=== PATIENT | male | born 1950 | race Two or more races ===

== ENCOUNTER 2024-10-22 07:32 | Inpatient (IN) | payer OTHER ==
[2024-10-22] VITALS (7 sets, daily range): BP systolic 120–127; BP diastolic 56–71; PULSE 68–87; RESP 10–20; TEMP 97.3–98; O2SAT 94–98
[~2024-10-22] VITALS: Ht 188 cm; Wt 113.4 kg
[~2024-10-22 07:32] MED LIST: ASPI1TAB20 PO; ATOR20TA PO; EMPA1TAB3 PO; INSU70IN3 SC; LEVO100T69 PO; LOSA-533 PO; MET50T PO; SEMA2INJ3 SC
[2024-10-22] MEDS ORDERED: MIDAZOLAM HCL 2MG/2ML 2ml VIAL (1mg/ml) ONE (08:50)
[2024-10-22] MEDS ORDERED: MORPHINE SULF PF 5 MG/10 ML VIAL ONE (08:50)
[2024-10-22] MEDS ORDERED: fentaNYL CITRATE 100 MCG/2 ML VL ONE (08:50)
[2024-10-22] MEDS ORDERED: KETAMINE 50mg/ML 1ml syringe ONE ×2 (08:50→10:57)
[2024-10-22] MEDS ORDERED: ONDANSETRON HCL 4 MG/2 ML VIAL ONE (08:51)
[2024-10-22] MEDS ORDERED: GLYCOPYRROLATE 0.2 MG/ML 1ML VIAL ONE (08:51)
[2024-10-22] MEDS ORDERED: ePHEDrine SULFATE 50 MG/ML AMP ONE (08:51)
[2024-10-22] MEDS ORDERED: PROPOFOL 10 MG/ML 20 ML IV ONE ×2 (08:51→10:39)
[2024-10-22] MEDS ORDERED: PHENYLEPHRINE HCL 10 MG/ML VL ONE (08:51)
[2024-10-22] MEDS ORDERED: KETOROLAC TROMETH 30 MG/ML 1ML VIAL ONE (08:51)
[2024-10-22] MEDS: ROPIVACAINE 0.5% (5MG/ML) 20ML AMPULE IJ ONE (10:25)
[2024-10-22] MEDS ORDERED: oxyCODONE HCL 5MG TAB PO PRN ×2 (11:45)
[2024-10-22] MEDS ORDERED: ACETAMINOPHEN 325 MG TAB PO PRN (11:45)
--- NOTE | 2024-10-22 11:45 | DVHOP2 ---
Operative Report - 2 Report Details Date: 10/22/24 Preop Diagnosis: Left knee degenerative arthritis Postop Diagnosis: Left knee degenerative arthritis Surgeon: Omi Farr MD Supervisor [employer]: Lázaro CRUMP Anesthesiologist: Swapnil Anesthesia: Local, Regional Drains: Prevena closed wound suction Implant: DonJoy size 10 femur PS, size nine tibial base plate, size 10 polyethylene Consent: The patient was informed of the risks and benefits of the procedure. These include but are not limited to complications of anesthesia, postoperative infection, incomplete relief of symptoms, recurrence of symptoms, damage to blood vessels, nerves and tendons, deep venous thrombosis, pulmonary embolism and possible need for repeat surgery in the future. Complications: None Estimated Blood Loss: 50 cc Fluids: See anesthesia record Findings: Denuded cartilage with eburnated bone, osteophytes, absent ACL Indications for Surgery: Left knee posttraumatic degenerative arthritis with severe pain and functional impairment despite nonoperative management Name of Procedure Performed Left total knee arthroplasty Procedure Details Procedure Details: The patient was brought to the operating room and placed on the table in the supine position after being given spinal anesthetic with adequate analgesia obtained. Surgical timeout was performed verifying patient, laterality and procedure Preop patient received IV cefepime IV Ancef and IV tranexamic acid. Tourniquet was applied to the lower extremity. Extremity was elevated, exsanguinated Esmarch, and tourniquet inflated. Lower extremity was prepped and draped in sterile fashion. Midline incision was made followed by medial arthrotomy. I exposed the anterior medial and lateral tibial plateau and the anterior distal femur. Bovie and aqua mantis were used for hemostasis. I excised the anterior meniscal tissue with Bovie. I excised a portion of the fat pad with Bovie. The patella was everted and the knee flexed. I drilled the distal femur and suctioned the hole to reduce the risk of fat emboli. I inserted intramedullary guide with 5 degree valgus setting. I pinned the distal femoral cutting block anteriorly. Intramedullary ruba was removed. Distal femoral cut was made and the block removed. I brought my attention to the tibia setting up the external cutting jig for the tibia paying attention to slope, rotation and varus valgus alignment. I set the depth and pinned the block. I used the external alignment ruba to aid in checking alignment. Bone cut was made and bone removed releasing soft tissue attachments with Bovie. Cutting block removed. I then checked the extension gap and deemed adequate and removed the femur and tibia pins. I flexed the knee and applied the femoral sizing guide to the femur. I checked the size and external rotation setting at 90 degrees to Whitesides line and checking the epicondylar axis. I drilled the holes then removed the sizing guide and pin. I then tapped on the 4 in 1 cutting block and checked with the vicki wing anteriorly to make sure that I would not notch then pinned the block. Cuts were made and the block and pins were removed. Bone was removed with curved osteotome. I used a rongeur to remove any remaining osteophytes at the femur and tibia. I then used a lamina recenterer to open up the back alternating between the medial and lateral side. Any remaining meniscal tissue was excised with scalpel. I used curved osteotome, curette and rongeur to remove any posterior osteophytes. I prophylactically coagulated with aqua mantis. I then tapped on the template for the box cut and pinned it. Box cut was made and bone removed. Template and pin removed. I then tapped on the femoral trial. I then brought my attention back to the tibia sizing it. I used the external alignment ruba to make sure that rotation and alignment were good. I made a Bovie anthony at the tibial tray anthony identifying rotation for later use. I tried various tibial polytrials. The patella tracked nicely without thumb pressure. I removed the trials. I pinned the tray and used the reamer and keel punch. The implants were brought into the field while bone pre paration was started. I used both normal saline irrigation and the CarboJet to prepare the bone. Once cement was ready I applied cement to the tibial implant and tibial bone tapped it on and removed excess cement in usual fashion. In similar fashion I tapped on the femoral implant. I inserted the trial polyethylene and brought the knee into 30 degrees flexion. I irrigated with xperience irrigant. Once cement cured, I checked stability and range of motion as well as patella tracking. tourniquet was released and hemostasis maintained with aqua mantis. I inserted the polyethylene and again checked stability. I used a 2 grams of vancomycin half of which was placed deep and half superficial. I repaired the extensor mechanism with the knee in flexion with #1 Ethibond interrupted [id number]. Deep subcutaneous tissue was closed with 0 Vicryl. Superficial subcutaneous tissue was closed with 2-0 vicryl interrupted. Skin was closed with courtney. I then applied the Prevena closed wound suction dr kaufman. Patient tolerated the procedure well and was brought to recovery room in stable condition. Condition Stable Disposition Still a Patient OMI FARR MD Oct 22, 2024 11:45
[2024-10-22] MEDS: ACCU-CHEK COMFORT CURVE STRIP VI ONE (11:48)
[2024-10-22] MEDS ORDERED: DexAMETHasone SOD PHOS 10MG/1ML VIAL INJ IV PRN (12:00)
[2024-10-22] MEDS ORDERED: ONDANSETRON HCL 4 MG/2 ML VIAL IV PRN (12:00)
[2024-10-22] MEDS: ACETAMINOPHEN 325 MG TAB PO SCH (12:00)
[2024-10-22] MEDS ORDERED: NALOXONE HCL 0.4 MG/ML VIAL IV PRN (12:00)
[2024-10-22] MEDS: KETOROLAC TROMETH 30 MG/ML 1ML VIAL IV SCH (12:00)
[2024-10-22] MEDS ORDERED: diphenhdrAMINE HCL 50 MG/1 ML VL IV PRN (12:00)
[2024-10-22] MEDS ORDERED: DEXTROSE (50%) 50ML SYRG IV PRN (12:00)
[2024-10-22] MEDS ORDERED: KETOROLAC TROMETH 30 MG/ML 1ML VIAL IV PRN (12:00)
[2024-10-22] MEDS: EPINEPHrine HCL 1 MG/1 ML AMP ONE (12:20)
[2024-10-22] MEDS: TRANEXAMIC ACID 20 ML ONE (12:21)
[2024-10-22] MEDS: CEFEPIME 1GM/ 50ML 50 ML IV ONE (12:21)
[2024-10-22] MEDS: VANCOMYCIN HCL 1000 MG VL ONE (12:21)
[2024-10-22] MEDS: ceFAZolin 2 GM/D5W100ml 100 ML IV ONE (12:22)
--- NOTE | 2024-10-22 12:24 | DVH ---
EXAM: XY L KNEE 3V XRAY HISTORY: Postop COMPARISON: None TECHNIQUE: 3 views of the left knee were performed. FINDINGS: Status post total knee replacement. The components are well aligned and well seated. No fracture. So ft tissue swelling and subcutaneous emphysema likely related to recent surgery. Wound VAC Partially imaged. IMPRESSION: 1. Postoperative changes status post total knee replacement without evidence of acute abnormality.
[2024-10-22] MEDS ORDERED: AMLO1TAB22 PO (12:34)
[2024-10-22] MEDS ORDERED: ceFAZolin 2 GM/D5W50ml 50 ML IV SCH (14:00)
[2024-10-22] MEDS: D5W/LACTATED RINGERS 1,000 ML IV SCH (15:09)
[2024-10-22] MEDS: ACCU-CHEK COMFORT CURVE STRIP VI SCH (16:45)
[2024-10-22] MEDS: InsuLIN REG 1unit/0.01ml Soln (100units/ml) SC SCH ×2 (16:46→21:40)
[2024-10-22] MEDS: ceFAZolin 2 GM/D5W50ml 50 ML IV SCH (17:49)
[2024-10-22] MEDS: PREGABALIN 25 MG CAP PO SCH (21:34)
[2024-10-23] VITALS (11 sets, daily range): BP systolic 101–142; BP diastolic 54–87; PULSE 60–80; RESP 16–20; TEMP 36.6; O2SAT 95–100
[2024-10-23] MEDS: LEVOTHYROXINE SODIUM 100 MCG TAB PO SCH (06:12)
[2024-10-23 07:30] LABS: Basophils # (auto) 0 10 ^3/uL (0-0.2); Basophils % (auto) 0.2 % (0.0-2.0); Eosinophils # (auto) 0 10 ^3/uL (0-0.8); Hematocrit 39.5 % (41.0-53.0); Hemoglobin 12.9 g/dL (13.5-17.5); Lymphocytes # (auto) 1.3 10 ^3/uL (0.4-5.4); Lymphocytes % (auto) 10.7 % (10.0-50.0); Mean Corpuscular Hemoglobin 28.1 pg (28.0-32.0); Mean Corpuscular Hgb Conc. 32.7 g/dL (32.0-36.0); Mean Corpuscular Volume 85.9 fL (80.0-100.0); Monocytes # (auto) 1.5 10 ^3/uL (0-1.3); Monocytes % (auto) 11.8 % (0.0-12.0); Neutrophils # (auto) 9.5 10 ^3/uL (1.6-8.6); Neutrophils % (auto) 77.3 % (37.0-80.0); Nucleated Red Blood Cells % 0.1 %; Platelet Count (auto) 159 10^3/uL (140-450); Red Blood Cells 4.59 10^6/uL (4.5-5.90); Red Cell Distribution Width 14.7 % (11.8-14.3); White Blood Cell 12.3 10^3/uL (4.4-10.8)
[2024-10-23 09:00] LABS: Anion Gap 8 (5-15); Carbon Dioxide 23 mmol/L (20-31); Chloride 107 mmol/L (98-107); Sodium 138 mmol/L (136-145)
[2024-10-23 09:02] LABS: Calcium 9.5 mg/dL (8.7-10.4); Potassium 5.1 mmol/L (3.5-5.1)
[2024-10-23 09:06] LABS: BUN/Creatinine Ratio 11.2 (10.0-20.0); Blood Urea Nitrogen 15 mg/dL (9-23)
[2024-10-23 09:09] LABS: Glucose 232 mg/dL (74-106)
[2024-10-23] MEDS: LOSARTAN POTASSIUM 25 MG TAB PO SCH (11:06)
[2024-10-23] MEDS: amLODIPine BESYLATE 5 MG TAB PO SCH (11:08)
[2024-10-23] MEDS: ATORVASTATIN 20 MG TAB PO SCH (11:08)
[2024-10-23] MEDS: ASPirin 81 mg TAB PO SCH (11:09)
[2024-10-23] MEDS: METOPROLOL TARTRATE 50 MG TAB PO SCH (11:10)
--- NOTE | 2024-10-23 17:03 | DVHDS2 ---
Discharge Summary Date of Admission Oct 22, 2024 at 11:45 Date of Discharge: Oct 23, 2024 Labs/Diagnostic Data: Laboratory Results Test 10/23/24 12:20 10/23/24 06:19 POC Glucose 240 mg/dl (70-106) White Blood Count 12.3 10^3/uL (4.4-10.8) Red Blood Count 4.59 10^6/uL (4.5-5.90) Hemoglobin 12.9 g/dL (13.5-17.5) Hematocrit 39.5 % (41.0-53.0) Mean Corpuscular Volume 85.9 fL (80.0-100.0) Mean Corpuscular Hemoglobin 28.1 pg (28.0-32.0) Mean Corpuscular Hemoglobin Concent 32.7 g/dL (32.0-36.0) Red Cell Distribution Width 14.7 % (11.8-14.3) Platelet Count 159 10^3/uL (140-450) Mean Platelet Volume 9.4 fL (6.9-10.8) Neutrophils (%) (Auto) 77.3 % (37.0-80.0) Lymphocytes (%) (Auto) 10.7 % (10.0-50.0) Monocytes (%) (Auto) 11.8 % (0.0-12.0) Eosinophils (%) (Auto) 0.0 % (0.0-7.0) Basophils (%) (Auto) 0.2 % (0.0-2.0) Neutrophils # (Auto) 9.5 10 ^3/uL (1.6-8.6) Lymphocytes # (Auto) 1.3 10 ^3/uL (0.4-5.4) Monocytes # (Auto) 1.5 10 ^3/uL (0-1.3) Eosinophils # (Auto) 0 10 ^3/uL (0-0.8) Basophils # (Auto) 0 10 ^3/uL (0-0.2) Nucleated Red Blood Cells 0.1 % Sodium Level 138 mmol/L (136-145) Potassium Level 5.1 mmol/L (3.5-5.1) Chloride Level 107 mmol/L (98-107) Carbon Dioxide Level 23 mmol/L (20-31) Anion Gap 8 (5-15) Blood Urea Nitrogen 15 mg/dL (9-23) Creatinine 1.34 mg/dL (0.700-1.30) Glomerular Filtration Rate Calc 55 mL/min (>90) BUN/Creatinine Ratio 11.2 (10.0-20.0) Serum Glucose 232 mg/dL (74-106) Calcium Level 9.5 mg/dL (8.7-10.4) Other Laboratory Tests 10/23/24 06:19 Brief Hx & Hospital Course: Patient had left total knee replacement 22 October 2024 , surgery was uneventful surgery was performed patient did very well, patient is ready to discharge today Okay just press OK here Condition at Discharge: Stable Final Diagnosis/Problems List Left knee degenerative arthritis Discharge Disposition: Home Discharge Instruct/Medications Diet: Regular Activity: See Comment Activity comment: Patient may remain WBAT with the assistance of a walker Follow Up/Referral: Patient to follow up with our office in 10-14 days for his first postoperative evaluation Medications: Rx sent via our outpatient EMR system Discharge Statement: "Patient was advised to return to the ER or call 911 if any headaches, dizziness, shortness of breath, chest pain, abdominal pain, bleeding, fevers, or worsening of medical condition. Patient was counseled about treatment plan, medications, possible side effects, patientverbalized understanding. All questions were answered to the best of my ability. This discharge took greater then 30 minutes in planning, reviewing documentation, counseling the patient, and discussing with other team members." ASSESSMENT ASSESSMENT Assessment Left knee degenerative arthritis CHA LO Oct 23, 2024 17:03
--- NOTE | 2024-10-23 17:08 | DVHPN2 ---
Progress Note - Dictate Date Seen: Oct 23, 2024 Medical Necessity Reason Pt with a Central, PICC or Fol: No Subjective today's postop day 1. On my visit today patient in no distress patient doing well. Patient reports pain well controlled with oral medication today no numbness tingling other concerns reported vital signs Vital Sign Date Time Temp Pulse Resp B/P (MAP) Pulse Ox O2 Delivery O2 Flow Rate FiO2 10/23/24 13:00 97.8 80 18 102/62 (75) 95 97.8 10/23/24 08:00 Nasal Cannula* 3 32 Total Intake and Output 10/22/24 10/22/24 10/23/24 15:00 23:00 07:00 Intake Total 100 ml 50 ml 1550 ml Output Total 600 ml Balance 100 ml 50 ml 950 ml medications Current Medications Medications Dose Ordered Sig/Eda Route Start Time Stop Time Status Last Admin Dose Admin Dextrose/Lactated Ringer's 1,000 ml @ 100 mls/hr Q10H IV 10/22/24 11:45 10/23/24 07:45 100 MLS/HR Acetaminophen 650 mg Q4HP PRN PO 10/22/24 11:45 Acetaminophen 650 mg Q6HR PO 10/22/24 12:00 10/23/24 12:17 650 MG Ketorolac Tromethamine 15 mg Q6HR IV 10/22/24 12:00 10/27/24 11:59 10/23/24 12:16 15 MG Pregabalin 50 mg BID PO 10/22/24 22:00 10/23/24 11:05 50 MG Oxycodone HCl 5 mg Q4HP PRN PO 10/22/24 11:45 Hold Oxycodone HCl 10 mg Q4HP PRN PO 10/22/24 11:45 Aspirin 81 mg BID PO 10/23/24 10:00 10/23/24 11:09 81 MG Atorvastatin Calcium 20 mg DAILY PO 10/23/24 10:00 10/23/24 11:08 20 MG Levothyroxine Sodium 100 mcg DAILY@0700 PO 10/23/24 07:00 10/23/24 06:12 100 MCG Losartan Potassium 12.5 mg DAILY PO 10/23/24 10:00 10/23/24 11:06 12.5 MG Metoprolol Tartrate 50 mg DAILY PO 10/23/24 10:00 10/23/24 11:10 50 MG Diagnostic Test (Pha) 1 strip ACHS 10/22/24 17:00 10/23/24 11:30 1 STRIP Insulin Human Regular HS SC 10/22/24 22:00 Insulin Human Regular AC SC 10/22/24 17:00 Dextrose 50 ml UD PRN IV 10/22/24 12:00 Diphenhydramine HCl 25 mg Q4HP PRN IV 10/22/24 12:00 Ondansetron HCl 4 mg Q4HP PRN IV 10/22/24 12:00 Ketorolac Tromethamine 30 mg Q6HP PRN IV 10/22/24 12:00 10/27/24 11:59 Amlodipine Besylate 10 mg DAILY PO 10/23/24 10:00 10/23/24 11:08 10 MG objective left knee range of motion full and intact surgical site just clean dry intact, knee range of motion 0-90 today gross neurovascularly intact. laboratory and microbiology Laboratory Tests 10/23/24 06:19 Test 10/23/24 06:19 Range/Units Serum Glucose 232 H 74-106 mg/dL Assessment/Plan Patient is postop day 1 left TKA, patient doing very well. Patient is ready to be discharged pain management as per protocol physical therapy per protocol, anticoagulation per surgeon protocol, patient to proceed with discharge today as he meets criteria for it Detail home care instructions were provided to the patient to include wound care activity modifications and symptom of potential complication and use of med as prescribed by the surgeon. Patient to follow-up with orthopedic clinic in 2 weeks for follow-up Plan discussed with: Patient CHA LO Oct 23, 2024 17:08
== END 2024-10-23 18:20 | disposition home or self-care (01) | DRG 470 ==
LOC: SUR 07:32 → TELE 11:45 → CENTRAL 15:40 → OVERFLOW 16:14 → CENTRAL 19:43 → OVERFLOW 10-23 12:43 → TELE-CENTR 10-23 12:51
PROVIDERS: ADMIT Orthopaedic Surgery; ATTEND Orthopaedic Surgery
PROC: 5A09357 Assistance with Respiratory Ventilation, Less than 24 Consecutive Hours, Continuous Positive Airway Pressure (ICD-10-PCS; 2024-10-22)
PROC: 0SRD069 Replacement of Left Knee Joint with Oxidized Zirconium on Polyethylene Synthetic Substitute, Cemented, Open Approach (ICD-10-PCS; principal; 2024-10-22 09:05)
DX: M17.12 Unilateral primary osteoarthritis, left knee (principal); Z79.899 Other long term (current) drug therapy
CPT/HCPCS: 36415; 73562; 80048; 82962; 85025; 86850; 86900; 86901; 94660; 97116; 97163; G0378; J0171; J1885; J2250; J2405; J2704